=== PATIENT | female | born 1995 | race Caucasian/White ===

== ENCOUNTER 2017-03-12 05:10 | Observation (INO) ==
[2017-03-12] MEDS ORDERED: Naloxone 0.4 MG/ML INJ IVP PRN ×2 (09:05→16:57)
[2017-03-12] MEDS ORDERED: Ondansetron 4 MG/2 ML VIAL IVP PRN ×2 (09:05→16:57)
[2017-03-12] MEDS ORDERED: Piperacillin/Tazobactam 3.375 GM in D5% in Water (Mini-Bag+) 100 ML IVPB SCH (09:05)
[2017-03-12] MEDS ORDERED: *HR* Morphine 2 MG/ML SYRINGE IVP PRN ×2 (09:05→16:57)
[2017-03-12] MEDS ORDERED: *HR* Promethazine 25 MG/ML VIAL IVP PRN ×3 (09:05→16:57)
[2017-03-12] MEDS ORDERED: 0.9 % Sodium Chloride 1,000 ML IVC SCH ×2 (09:15→16:57)
[2017-03-12] MEDS ORDERED: Pantoprazole 40 MG VIAL IVP SCH (09:15)
--- NOTE | 2017-03-12 09:59 | General Surg History&Physical ---
Date of Encounter: 03/12/17 Time of Encounter: 09:45 Assessment and Plan (1) Leukocytosis Current Visit: Yes Status: Acute The assessment and plan as outlined above was discussed with the patient and/or family members who expressed understanding and agreement. All questions were answered. start zosyn, trend wbc plan lap appy today Qualifiers: Leukocytosis type: unspecified Qualified Code(s): D72.829 - Elevated white blood cell count, unspecified (2) Acute appendicitis Current Visit: Yes Status: Acute The assessment and plan as outlined above was discussed with the patient and/or family members who expressed understanding and agreement. All questions were answered. discussed ct results, labs and PE findings as well as symptoms with patient. She has early acute appendicitis. Will plan laparoscopic appendectomy, possible open, risks and benefits discussed and she wishes to proceed npo ivf hydration prn pain control gi/dvt prophylaxis zosyn abx prn antiemetics Qualifiers: Acute appendicitis type: unspecified acute appendicitis type Qualified Code (s): K35.80 - Unspecified acute appendicitis (3) Nausea & vomiting Current Visit: Yes Status: Acute The assessment and plan as outlined above was discussed with the patient and/or family members who expressed understanding and agreement. All questions were answered. prn antiemetics Qualifiers: Vomiting type: unspecified Qualified Code(s): R11.2 - Nausea with vomiting , unspecified (4) Abdominal pain Current Visit: No Status: Acute The assessment and plan as outlined above was discussed with the patient and/or family members who expressed understanding and agreement. All questions were answered. prn pain control, plan OR today Qualifiers: Abdominal location: right lower quadrant Qualified Code(s): R10.31 - Right lower quadrant pain History of Present Illness Chief complaint: abdominal pain, N/V HPI: Ms. Perez is a 21 year old female who started having LUQ pain beginning last night. She states the pain was sharp and radiated across her abdomen. SHe was having nausea and emesis with this. She denies fevers, chills or night sweats. No dysuria. She has diarrhea for all bm's since having her gallbladder removed. The pain is now minimal and in the RLQ. CT scan done at [facility] showed dilated appendix w/o significant inflammation but wbc 18. Past Med Surg Social Fam HX - Past Medical History Source: patient Medical history: no medical history Psychiatric history: anxiety, depression - Past Surgical History Surgical History: cholecystectomy (laparoscopic) - Social History Smoking Status: Current every day smoker Smokeless Tobacco Status: No Alcohol use: none Drug use: none - Family History Mother History Unknown: Yes Family Member Ethnicity: Non- Living Status: Still Living Hx Family Cardiac Disorders: No Hx Family Respiratory Disorders: No Hx Family Cancer: No Hx Family GI Disorders: No Hx Family Genitourinary Disorders: No Hx Family Endocrine Disorder: No Hx Family Musculoskeletal Disorders: No Hx Family Neuromuscular Disorders: No Hx Family Neurologic Disorders: No Hx Family HEENT Disorders: No Hx Family Autoimmune Disorders: No Hx Family Reproductive Disorders: No Hx Family Psychosocial Disorders: No Hx Family Medical Disorders: No Medications and Allergies No Known Home Drugs 05/20/16 [History] Allergies No Known Allergies Allergy (Verified 05/20/16 21:08) Review of Systems All systems PM: reviewed and no additional remarkable complaints except as stated All systems PM: A 10-system review of systems was performed and is negative for pertinent findings except as documented above in the HPI. General Surgery Exam Initial Vital Signs Temp Pulse Resp BP Pulse Ox 98.0 F 56 16 107/67 95 03/12/17 06:31 03/12/17 06:31 03/12/17 06:31 03/12/17 06:31 03/12/17 06:31 - General physical appearance well developed, well nourished, no distress, no pain - Eyes PERRL, normal ocular movement - ENT normal mucosa, normocephalic - Neck trachea midline - Respiratory normal expansion, clear to auscultation - Cardiovascular Cardiovascular exam: Present: RRR, no murmurs/rubs/gallops - Abdomen Abdomen general surgery: Present: bowel sounds present, soft, tender (mildly). Absent: guarding, rebound Abdominal Tenderness: Present: RLQ - Integumentary Integumentary general surgery: Present: warm and dry, no abnormal pigmentation - Neurologic Present: CN 2-12 grossly intact - Musculoskeletal Present: normal gait, normal posture - Psychiatric Psychiatric general surgery: Present: A&Ox3, speech is normal Results - Labs All other labs normal. labs from [facility] reviewed, neg test, wbc 18 - Imaging CT scan - abdomen: report reviewed, image reviewed CT scan - pelvis: report reviewed, image reviewed
[2017-03-12] MEDS ORDERED: *HR* Succinylcholine 200 MG/10 ML VIAL IVP ONE (11:44)
[2017-03-12] MEDS ORDERED: Lidocaine -MPF 2% 2 ML VIAL ONE ×2 (11:44→11:47)
[2017-03-12] MEDS ORDERED: *HR* FentaNYL (PF) 100 MCG/2 ML VIAL ONE (11:44)
[2017-03-12] MEDS ORDERED: Lidocaine -MPF 4% 5 ML AMPUL ONE (11:44)
[2017-03-12] MEDS ORDERED: *HR* Midazolam HCl 2 MG/2 ML VIAL ONE (11:45)
[2017-03-12] MEDS ORDERED: *HR* Propofol 200 MG/20 ML VIAL IVP ONE (11:45)
[2017-03-12] MEDS ORDERED: Dexamethasone 4 MG/ML VIAL ONE (11:50)
[2017-03-12] MEDS ORDERED: Ondansetron 4 MG/2 ML VIAL ONE (11:50)
--- NOTE | 2017-03-12 13:56 | Anesthesia Evaluation PreOp ---
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) Other Medical History: Denies Any Significant HX Anesthesia History: No Prior Anesthetic Complications, Past Anesthesia (Lap Mariama) Alcohol Use: none Drug use: none Medications and Allergies No Known Home Drugs 05/20/16 [History] Allergies No Known Allergies Allergy (Verified 05/20/16 21:08) - Meds/Allergy Pre-op Review Medications Reviewed: Yes Allergies Reviewed: Yes Beta Blockers on Current Med List: No Anesthesia Results - Labs Laboratory Tests 03/12/17 03/12/17 03/12/17 03:15 03:15 03:15 PT 12.0 INR 1.1 APTT 31.5 Est GFR (Non-Af Amer) > 60 Urine Test 03/12/17 03:34 PT INR APTT Est GFR (Non-Af Amer) Urine Test Negative Anesthesia Exam Vital Signs Temp Pulse Resp BP Pulse Ox 03/12/17 12:15 98.2 F 96 15 100/63 98 03/12/17 06:31 98.0 F 56 16 107/67 95 Intake and Output 03/11/17 03/12/17 03/12/17 23:59 07:59 15:59 Other: Meal NPO Weight 88.451 kg Patient Weight 03/12/17 23:59 Weight 88.451 kg Height: 5'7" Weight: 195# bmi = 30.5 NPO (# of Hours): mnOC Anesthesia Assess/Plan ASA Score: 2 (Anxiety/Depression) Modified Comfort Scale for Level of Consciousness: Cooperative, oriented, and tranquil Anesthetic Plan: General Monitoring Plan: Standard Monitors Recovery Plan: PACU Anes Supervising Prov Stmt: Pt seen/evaluated, R&B discussed, questions answered and consent obtained. Giovanni Nino MD
[2017-03-12] MEDS ORDERED: Famotidine 20 MG/2 ML VIAL ONE (14:26)
[2017-03-12] MEDS ORDERED: Metoclopramide 10 MG/2 ML VIAL ONE (14:26)
[2017-03-12] MEDS ORDERED: Acetaminophen IV 1,000 MG/100 ML INFUS..BTL ONE (14:26)
[2017-03-12] MEDS ORDERED: *HR* HYDROmorphone 2 MG/ML SYRINGE ONE (15:12)
[2017-03-12] MEDS ORDERED: Ketorolac 30 MG/ML VIAL ONE (15:28)
--- NOTE | 2017-03-12 15:35 | Operative Note ---
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 Sign-in was performed and everyone was in agreement. Anesthesia was induced and patient was endotracheally intubated by anesthesia without incident. An OG tube was placed by anesthesia. The abdomen was prepped and draped in the usual sterile fashion. A timeout was performed and again everyone was in agreement. A infraumbilical incision was made through the skin and the subcutaneous tissue with an 11 blade. Towel clamps were placed on either side of the umbilicus for retraction. S-retractors were used to dissect down to the anterior abdominal wall linea alba fascia. A Veress needle was placed into the LUQ after a stab incision with an 11 blade was made and a water drop test confirmed placement and the abdomen was insufflated. We then entered the abdomen with the 5 mm 0 degree laparoscope on a 5 mm X-kevin trocar at the infraumbilical incision site. The area under entry was visualized and there was no bleeding and no apparent bowel injury. We placed a suprapubic 5 mm port under direct visualization after first incising the skin with an 11 blade. The laparoscope was placed through this and we exchanged the supraumbilical port for a 12 mm port under direct visualization. We then placed another 5 mm port in the left lower quadrant position under direct visualization after first incising the skin with an 11 blade. The patient was placed in slight Trendelenburg left side down position. The cecum was located as was the appendix. The appendix was grasped and retracted anteriorly and caudally with a laparoscopic [place]. A [place] was used to dissect between the mesoappendix and the appendix at the base of the cecum. The mesoappendix was transected with a laparoscopic flex-ex ETS stapler using a white load. The appendix was transected at the base of the cecum with the same stapler utilizing a white load. The appendix was placed in a laparoscopic Endo Catch bag and removed via the infraumbilical incision site. Both staple lines were evaluated and there was no bleeding and both staple lines were intact. The area was irrigated with sterile saline which was then suctioned free from the abdomen. The insufflation was suctioned free from the abdomen and all trochars removed. We closed the abdominal wall at the supraumbilical incision site with an 0 Vicryl [id number] stitch. A 30 cc of 0.5% Marcaine was injected subcutaneously at the 3 port sites. The skin at the two 5 mm port sites was closed with 4-0 Monocryl interrupted subcuticular stitches. The skin at the supraumbilical incision site was closed with a 4-0 Monocryl running subcuticular stitch. Steri-Strips were applied to the wounds. The patient was extubated in the OR and tolerated the procedure well and was taken to PACU after all lap and instrument counts were correct at the end of the case.
--- NOTE | 2017-03-12 15:42 | Discharge Summary ---
Date of Encounter: 03/12/17 Time of Encounter: 16:00 - Discharge Diagnosis (1) Leukocytosis Priority: Secondary Status: Acute Qualifiers: Leukocytosis type: unspecified Qualified Code(s): D72.829 - Elevated white blood cell count, unspecified (2) Acute appendicitis Priority: Primary Status: Acute Qualifiers: Acute appendicitis type: unspecified acute appendicitis type Qualified Code (s): K35.80 - Unspecified acute appendicitis (3) Nausea & vomiting Priority: Secondary Status: Acute Qualifiers: Vomiting type: unspecified Qualified Code(s): R11.2 - Nausea with vomiting , unspecified (4) Abdominal pain Priority: Secondary Status: Acute Qualifiers: Abdominal location: right lower quadrant Qualified Code(s): R10.31 - Right lower quadrant pain - Discharge Medications Prescriptions: Docusate [Colace] 100 mg PO BID #30 capsule HYDROcodone/Acet 5/325 mg [[place] 5-325 mg] 1 tab PO Q4H PRN #30 tab PRN Reason: Pain Home Medications: No Known Home Drugs 05/20/16 [History] Docusate [Colace] 100 mg PO BID #30 capsule 03/12/17 [Rx] HYDROcodone/Acet 5/325 mg [[place] 5-325 mg] 1 tab PO Q4H PRN #30 tab 03/12/17 [Rx ] Allergies/Adverse Reactions: Allergies No Known Allergies Allergy (Verified 05/20/16 21:08) General Surgery Exam Initial Vital Signs Temp Pulse Resp BP Pulse Ox 98.0 F 56 16 107/67 95 03/12/17 06:31 03/12/17 06:31 03/12/17 06:31 03/12/17 06:31 03/12/17 06:31 - General physical appearance well developed, well nourished, no distress - Eyes PERRL, normal ocular movement - ENT normal mucosa, normocephalic - Neck trachea midline - Respiratory normal expansion - Cardiovascular Cardiovascular exam: Present: RRR - Abdomen Abdomen general surgery: Present: bowel sounds present, soft, tender ( appropriate post op tenderness) - Incision Incision: Present: clean and dry, intact - Integumentary Integumentary general surgery: Present: warm and dry, no abnormal pigmentation - Neurologic Present: CN 2-12 grossly intact - Musculoskeletal Present: normal posture - Psychiatric Psychiatric general surgery: Present: A&Ox3, speech is normal Date of admission: 03/12/17 06:09 Primary care physician: PCP NONE Discharging clinician: Ann Arnold Anticipated date of discharge: 03/12/17 - Patient Status Disposition: Home, Self-Care Condition: Good Overall status at discharge: patient is back to baseline - Discharge Instructions Instructions: Laparoscopic Appendectomy (DC) Follow Up With: NONE,PCP [Primary Care Provider] - Love Niño, BALLASTER [Advanced Practice Nurse] - Additional Instructions: No lifting more than 20 pounds for 2 weeks. Okay to take a shower in 24 hours. No tub baths or pools for 1 week. Okay to ride in the car wearing a seatbelt and climb steps. No driving until off narcotics for 24 hours and able to react safely Remove Steri-Strips in 1 week Do not take pain medicine/narcotics on an empty stomach it will likely cause nausea and possibly vomiting. If pain medication is too strong okay to break in half - Diet and Activity Activity: increase activity as tolerated Diet: advance to your usual diet - Hospital Course Hospital course: Ms. Perez is a 21 year old female with initially LUQ and diffuse abdominal pain presented to [facility]. WBC [address] scan with some fluid in pelvis and dilated appendix. She on exam was tender only mildly in RLQ without rebound or guarding. She underwent an uncomplicated laparoscopic appendectomy 03/12/17. She was started on diet and advanced. Pain was controlled with po medication. She was discharged in stable condition. - Time Spent with Patient Total time spent providing and/or coordinating discharge services:
[2017-03-12] MEDS ORDERED: *HR* Labetalol 20 MG/4 ML SYRINGE IVP PRN (15:58)
[2017-03-12] MEDS ORDERED: *HR* HYDROmorphone (PF) 1 MG/ML SYRINGE IVP PRN (15:58)
--- NOTE | 2017-03-12 16:32 | Anesthesia Evaluation Post Op ---
Date of Encounter: 03/12/17 Time of Encounter: 15:59 - Vital Signs Vital Signs: Vital Signs/O2 Sat/Glucose, Most Current Temp Pulse Resp BP Pulse Ox 03/12/17 15:51 48 18 109/64 97 03/12/17 15:41 97.5 F L 47 22 107/61 97 03/12/17 12:15 98.2 F 96 15 100/63 98 - Lungs Lungs: Clear Ascult./Percussion - Airway Airway: Non-obstructed - Cardiovascular Regular Rate - Mental Status Mental Status: Asleep with brisk response to light stimulation - Pain Pain Scale: 0 Pain Scale used: Numeric (1 - 10) - Nausea Vomiting Nausea Vomiting: Not Present - Hydration Hydration: Ice chips, Has not voided - Discharge PostOp Status: Transfer Patient to floor Anes Supervising Prov Stmt: Pt seen/evaluated, VSS and pt has met criteria for discharge to floor. - MD Trung
[2017-03-12] MEDS ORDERED: *HR* HYDROcodone/Acet 5/325 mg TABLET PO PRN (16:57)
[2017-03-12 18:22] VITALS: BP 115/65
[2017-03-13] MEDS ORDERED: Pantoprazole 40 MG VIAL IVP SCH (09:00)
== END 2017-03-12 19:00 | disposition home or self-care (01) ==
LOC: 3BNU → 3ANU 16:17
PROVIDERS: ADMIT Surgery; ATTEND Surgery